=== PATIENT | male | born 1960 | race Caucasian/White ===

== ENCOUNTER 2017-09-03 13:22 | Outpatient (CLI) | payer OTHER ==
[~2017-09-03] VITALS: Ht 172.7 cm; Wt 72.0 kg
[2017-09-03] VITALS (10 sets, daily range): BP systolic 103–123; BP diastolic 67–93; PULSE 68–78; TEMP 97.6–98.3
[2017-09-03] MEDS ORDERED: CYTOXAN 50 PO (16:55)
[2017-09-03] MEDS ORDERED: DIFLUCAN200 MG PO (16:56)
[2017-09-03] MEDS ORDERED: VALTREX 50500 MG/TAB PO (16:56)
[2017-09-03] MEDS ORDERED: MEGACE 40MG40 MG/TAB PO (16:56)
[2017-09-03] MEDS ORDERED: SEPTRA DS 8001 TAB PO (16:57)
== END 2017-09-03 19:30 | disposition home or self-care (01) ==
LOC: EUO 13:22
DX: C91.Z0 Other lymphoid leukemia not having achieved remission (principal)
CPT/HCPCS: J7050; P9040

== ENCOUNTER 2017-12-25 13:00 | Outpatient (RCR) | payer OTHER ==
[2017-10-01] VITALS (10 sets, daily range): BP systolic 104–136; BP diastolic 58–84; PULSE 67–112; TEMP 98–98.8
[2017-10-16] VITALS (12 sets, daily range): BP systolic 100–125; BP diastolic 62–79; PULSE 62–90; TEMP 98–98.3
[2017-10-29] VITALS (7 sets, daily range): BP systolic 102–125; BP diastolic 56–83; PULSE 76–85; TEMP 98.2–98.6
[2017-11-21] VITALS (8 sets, daily range): BP systolic 97–117; BP diastolic 68–79; PULSE 72–96; TEMP 99.1
[~2017-12-25] VITALS: Ht 172.7 cm; Wt 71.0 kg
[2017-12-25] VITALS (8 sets, daily range): BP systolic 105–129; BP diastolic 60–78; PULSE 61–96; TEMP 98–98.9
[~2017-12-25 13:00] MED LIST: CYTOXAN 50 PO; DIFLUCAN200 MG PO; MEGACE 40MG40 MG/TAB PO; SEPTRA DS 8001 TAB PO; VALTREX 50500 MG/TAB PO
== END 2017-12-29 | disposition home or self-care (01) ==
LOC: EUO
DX: C91.Z0 Other lymphoid leukemia not having achieved remission (principal)
CPT/HCPCS: J7050; P9040

== ENCOUNTER 2018-03-27 10:00 | Outpatient (RCR) | payer OTHER ==
[2018-01-23] VITALS (7 sets, daily range): BP systolic 104–130; BP diastolic 71–85; PULSE 64–78; TEMP 97.8–98.2
[2018-02-20 11:00] VITALS: BP 135/84; PULSE 84; TEMP 97.7
[2018-02-20 11:02] LABS: MEAN CELL VOLUME 100 fl (80.0-100.0); MEAN CORPUSCULAR HGB CONC 34 g/dl (33.0-37.0); MEAN PLATELET VOLUME 8.8 fl (7.4-10.4); RED BLOOD COUNT 2.02 M/mm3 (4.20-5.60); REDCELL DISTRIBUTION WIDTH-CV 20.2 % (11.5-14.5)
[2018-02-20 11:05] LABS: HEMATOCRIT 20.1 % (42.0-52.0); HEMOGLOBIN 6.8 g/dl (13.5-18.0); MEAN CORPUSCULAR HEMOGLOBIN 34 pg (27.0-31.0); PLATELET COUNT 35 K/mm3 (130-400)
[2018-02-20 11:11] LABS: ALBUMIN 3.2 gm/dL (3.5-5.0); BILIRUBIN,TOTAL 0.5 mg/dL (0.0-1.0); CALCIUM 8.3 mg/dL (8.4-10.2); CREATININE, serum 0.81 mg/dL (0.66-1.25); POTASSIUM 3.8 mmol/L (3.4-5.0); TOTAL PROTEIN 7.1 gm/dL (6.4-8.2)
[2018-02-20 11:50] LABS: BAND 2 % (0-10); EOSINOPHIL 2 % (0-4); LYMPHOCYTE 82 % (20.0-51.0); NEUTROPHILS 14 % (42.0-75.2); PLATELET ESTIMATE DECREASED (NORMAL)
[2018-02-21] VITALS (7 sets, daily range): BP systolic 99–121; BP diastolic 50–73; PULSE 80–88; TEMP 98–99
[2018-02-24 09:20] VITALS: BP 124/76; PULSE 96; TEMP 97.9
[2018-02-27 09:14] VITALS: BP 109/85; PULSE 106; TEMP 98.2
[2018-02-27 09:28] LABS: MEAN CELL VOLUME 93 fl (80.0-100.0); MEAN CORPUSCULAR HGB CONC 34 g/dl (33.0-37.0); MEAN PLATELET VOLUME 9.3 fl (7.4-10.4); RED BLOOD COUNT 2.77 M/mm3 (4.20-5.60); REDCELL DISTRIBUTION WIDTH-CV 18.9 % (11.5-14.5)
[2018-02-27 09:34] LABS: HEMATOCRIT 25.8 % (42.0-52.0); HEMOGLOBIN 8.8 g/dl (13.5-18.0); MEAN CORPUSCULAR HEMOGLOBIN 32 pg (27.0-31.0)
[2018-02-27 09:35] LABS: ALBUMIN 3.5 gm/dL (3.5-5.0); BILIRUBIN,TOTAL 0.7 mg/dL (0.0-1.0); CALCIUM 8.5 mg/dL (8.4-10.2); CREATININE, serum 0.86 mg/dL (0.66-1.25); PLATELET COUNT 32 K/mm3 (130-400); POTASSIUM 3.5 mmol/L (3.4-5.0); TOTAL PROTEIN 7.5 gm/dL (6.4-8.2)
[2018-02-27 09:49] LABS: BAND 20 % (0-10); EOSINOPHIL 10 % (0-4); LYMPHOCYTE 30 % (20.0-51.0); NEUTROPHILS 10 % (42.0-75.2)
[2018-02-27 09:50] LABS: ANISOCYTOSIS 1+; PLATELET ESTIMATE DECREASED (NORMAL)
[2018-03-06 10:06] VITALS: BP 113/80; PULSE 84; TEMP 98.1
[2018-03-06 10:20] LABS: MEAN CELL VOLUME 94 fl (80.0-100.0); MEAN CORPUSCULAR HGB CONC 35 g/dl (33.0-37.0); MEAN PLATELET VOLUME 10.4 fl (7.4-10.4); RED BLOOD COUNT 2.01 M/mm3 (4.20-5.60); REDCELL DISTRIBUTION WIDTH-CV 18.3 % (11.5-14.5)
[2018-03-06 10:26] LABS: HEMATOCRIT 18.8 % (42.0-52.0); MEAN CORPUSCULAR HEMOGLOBIN 32 pg (27.0-31.0)
[2018-03-06 10:30] LABS: PLATELET COUNT 41 K/mm3 (130-400)
[2018-03-06 10:31] LABS: HEMOGLOBIN 6.5 g/dl (13.5-18.0)
[2018-03-06 10:34] LABS: ALBUMIN 3.6 gm/dL (3.5-5.0); BILIRUBIN,TOTAL 0.6 mg/dL (0.0-1.0); CALCIUM 8.7 mg/dL (8.4-10.2); CREATININE, serum 0.87 mg/dL (0.66-1.25); POTASSIUM 3.9 mmol/L (3.4-5.0); TOTAL PROTEIN 7.7 gm/dL (6.4-8.2)
[2018-03-06 11:10] LABS: BAND 21 % (0-10); LYMPHOCYTE 11 % (20.0-51.0); METAMYELOCYTE 11 % (0-0); NEUTROPHILS 58 % (42.0-75.2)
[2018-03-06 11:11] LABS: PLATELET ESTIMATE DECREASED (NORMAL)
[2018-03-07] VITALS (10 sets, daily range): BP systolic 103–143; BP diastolic 55–98; PULSE 74–94; TEMP 97.8–98.4
[2018-03-13 09:27] VITALS: BP 122/74; PULSE 83; TEMP 97.4
[2018-03-13 09:35] LABS: MEAN CELL VOLUME 94 fl (80.0-100.0); MEAN CORPUSCULAR HGB CONC 34 g/dl (33.0-37.0); MEAN PLATELET VOLUME 9.4 fl (7.4-10.4); RED BLOOD COUNT 2.92 M/mm3 (4.20-5.60); REDCELL DISTRIBUTION WIDTH-CV 18.2 % (11.5-14.5)
[2018-03-13 09:47] LABS: ALBUMIN 3.4 gm/dL (3.5-5.0); BILIRUBIN,TOTAL 0.6 mg/dL (0.0-1.0); CALCIUM 8.3 mg/dL (8.4-10.2); CREATININE, serum 0.83 mg/dL (0.66-1.25); POTASSIUM 3.4 mmol/L (3.4-5.0); TOTAL PROTEIN 7.2 gm/dL (6.4-8.2)
[2018-03-13 10:07] LABS: HEMATOCRIT 27.4 % (42.0-52.0); HEMOGLOBIN 9.4 g/dl (13.5-18.0); MEAN CORPUSCULAR HEMOGLOBIN 32 pg (27.0-31.0)
[2018-03-13 10:09] LABS: PLATELET COUNT 33 K/mm3 (130-400)
[2018-03-13 10:11] LABS: ANISOCYTOSIS 2+; BAND 36 % (0-10); LYMPHOCYTE 29 % (20.0-51.0); NEUTROPHILS 7 % (42.0-75.2); PLATELET ESTIMATE DECREASED (NORMAL)
[2018-03-20 10:25] LABS: MEAN CELL VOLUME 96 fl (80.0-100.0); MEAN CORPUSCULAR HGB CONC 34 g/dl (33.0-37.0); MEAN PLATELET VOLUME 10.7 fl (7.4-10.4); RED BLOOD COUNT 2.47 M/mm3 (4.20-5.60); REDCELL DISTRIBUTION WIDTH-CV 18.6 % (11.5-14.5)
[2018-03-20 10:26] LABS: HEMATOCRIT 23.6 % (42.0-52.0); MEAN CORPUSCULAR HEMOGLOBIN 32 pg (27.0-31.0); PLATELET COUNT 42 K/mm3 (130-400)
[2018-03-20 10:33] LABS: ALBUMIN 3.4 gm/dL (3.5-5.0); BILIRUBIN,TOTAL 0.5 mg/dL (0.0-1.0); CALCIUM 8.5 mg/dL (8.4-10.2); CREATININE, serum 0.87 mg/dL (0.66-1.25); POTASSIUM 3.6 mmol/L (3.4-5.0); TOTAL PROTEIN 7.4 gm/dL (6.4-8.2)
[2018-03-20 10:36] VITALS: BP 126/92; PULSE 94; TEMP 98
[2018-03-20 11:17] LABS: BAND 13 % (0-10); LYMPHOCYTE 53 % (20.0-51.0); NEUTROPHILS 33 % (42.0-75.2); PLATELET ESTIMATE DECREASED (NORMAL)
[2018-03-20 11:18] LABS: ANISOCYTOSIS 1+
[~2018-03-27] VITALS: Ht 172.7 cm; Wt 69.4 kg
[~2018-03-27 10:00] MED LIST changes: +CIPRO 500MG TA500 MG PO; +PRILOSEC 20MG20 MG PO
[2018-03-27 10:24] VITALS: BP 112/74; PULSE 62; TEMP 98.6
[2018-03-27 10:43] LABS: MEAN CELL VOLUME 97 fl (80.0-100.0); MEAN CORPUSCULAR HGB CONC 35 g/dl (33.0-37.0); MEAN PLATELET VOLUME 12.4 fl (7.4-10.4); RED BLOOD COUNT 2.42 M/mm3 (4.20-5.60); REDCELL DISTRIBUTION WIDTH-CV 19.6 % (11.5-14.5)
[2018-03-27 10:50] LABS: HEMATOCRIT 23.4 % (42.0-52.0); HEMOGLOBIN 8.2 g/dl (13.5-18.0); MEAN CORPUSCULAR HEMOGLOBIN 34 pg (27.0-31.0)
[2018-03-27 10:51] LABS: PLATELET COUNT 43 K/mm3 (130-400)
[2018-03-27 10:57] LABS: ALBUMIN 3.7 gm/dL (3.5-5.0); BILIRUBIN,TOTAL 0.8 mg/dL (0.0-1.0); CALCIUM 8.7 mg/dL (8.4-10.2); CREATININE, serum 1.01 mg/dL (0.66-1.25); TOTAL PROTEIN 7.9 gm/dL (6.4-8.2)
[2018-03-27 11:46] LABS: BAND 60 % (0-10); LYMPHOCYTE 27 % (20.0-51.0); PLATELET ESTIMATE DECREASED (NORMAL)
[2018-03-27 11:47] LABS: ANISOCYTOSIS 2+
== END 2018-03-27 10:51 | disposition home or self-care (01) ==
LOC: EUO 10:00
PROVIDERS: Internal Medicine
DX: C91.Z0 Other lymphoid leukemia not having achieved remission (principal); D61.818 Other pancytopenia; Z45.2 Encounter for adjustment and management of vascular access device; Z95.9 Presence of cardiac and vascular implant and graft, unspecified
CPT/HCPCS: OP; C1751; J7050; P9040

== ENCOUNTER → 2022-01-11 | Outpatient (CLI) | payer OTHER | LOC: ZCOL.LAB 16:41 | DX: L02.11 Cutaneous abscess of neck (principal) ==

== ENCOUNTER 2022-03-11 19:33 | Emergency (ER) | payer OTHER ==
[~2022-03-11] VITALS: Ht 172.7 cm; Wt 63.6 kg
[2022-03-11 19:37] VITALS: TEMP 98.1
[2022-03-11 21:45] VITALS: BP 140/73; PULSE 80
== END 2022-03-11 21:45 | disposition home or self-care (01) ==
LOC: COL.ER 19:33
DX: L76.22 Postprocedural hemorrhage of skin and subcutaneous tissue following other procedure (principal); F17.210 Nicotine dependence, cigarettes, uncomplicated; Z28.310 Unvaccinated for COVID-19